=== PATIENT | female | born 1950 | race Caucasian/White ===

== ENCOUNTER 2020-09-11 13:48 | Outpatient (CLI) | payer MEDICARE, SELFPAY ==
--- NOTE | ~2020-09-11 | MM_ITS ---
EXAMINATION: MM screening magy BI w effie HISTORY: Screening mammogram TECHNIQUE: Craniocaudal and mediolateral oblique 3-D tomosynthesis images were obtained and synthetic 2-D images were generated. CAD analysis was submitted and interpreted. COMPARISON: 09/03/2018, 05/04/2017, 05/04/2015 bilateral digital screening mammogram examinations BREAST PARENCHYMAL COMPOSITION: The breasts are heterogeneously dense, which may obscure small masses . FINDINGS: There is no evidence of suspicious mass, calcification, or architectural distortion to sugg est malignancy in either breast. There has been no suspicious interval change. IMPRESSION: 1. No mammographic evidence of malignancy. 2. Recommend routine screening mammography in one year. BI-RADS Category 1: Negative Reviewed, dictated and finalized at location A.
== END 2020-09-11 13:49 | disposition home or self-care (01) ==
PROVIDERS: PCP Internal Medicine; Visit Provider Nurse Practitioner
DX: Z12.31 Encounter for screening mammogram for malignant neoplasm of breast (principal)
CPT/HCPCS: 77063; 77067

== ENCOUNTER 2020-11-03 12:38 | Emergency (ER) | payer MEDICARE, SELFPAY ==
--- NOTE | ~2020-11-03 | XR_ITS ---
EXAMINATION: XR ankle LT min 3V DATE: 11/03/2020 13:39 INDICATION: Left ankle pain, initial encounter TECHNIQUE: Anteroposterior, lateral, mortise, and additional oblique view of the ankle were obtained. COMPARISON: None. FINDINGS: There is a subtle oblique lucency of the distal fibula extending to the level of the tibial plafond. Ankle soft tissue swelling is noted. Bone alignment is normal. IMPRESSION: 1. Subtle oblique lucency of the distal fibula which could reflect nondisplaced fracture. Reviewed, dictated and finalized at location A.
--- NOTE | ~2020-11-03 | XR_ITS ---
EXAMINATION: XR knee LT min 4V DATE: 11/03/2020 13:38 INDICATION: Left knee pain TECHNIQUE: Four views of the left knee were obtained. COMPARISON: None. FINDINGS: Alignment is normal. No fracture or osteochondral lesion. There is mild tricompartmental os teoarthritis characterized by tiny marginal osteophytes. There is a small joint effusion. Soft tissue swelling surrounds the knee. IMPRESSION: 1. Knee soft tissue swelling and small joint effusion. No acute osseous abnormality identified. Reviewed, dictated and finalized at location A. IMPRESSION: 1. Knee soft tissue swelling and small joint effusion. No acute osseous abnorma lity identified.
[2020-11-03 12:45] VITALS: BP 112/88; PULSE 72; RESP 16; TEMP 36.9; O2SAT 100
--- NOTE | 2020-11-03 13:16 | ED.LOWEXIN ---
HPI - Extremity Injury (Lower) General Chief Complaint: Extremity Injury, Lower Stated Complaint: Left leg pain Time Seen by Provider: 11/03/20 13:16 Source: patient Mode of arrival: ambulatory Limitations: no limitations History of Present Illness HPI Narrative: Mariela Mccall is a 70 yo female with a PMH of high blood pressure only who [facility] injury while jumping off rocks with her grandchildren on Thursday her left leg was initially very swollen after she fell,, and she was walking more on her left toes and not putting her leg down and now the swelling is still there she is got ecchymosis around the calcaneal area she said she heard a popping but her knee is stiff as well as her ankle currently Related Data Home Medications Medication Instructions Recorded Confirmed cholecalciferol (vitamin D3) 50 50 mcg PO DAILY 08/15/19 11/03/20 mcg (2,000 unit) capsule lisinopril 10 mg PO DAILY 11/03/20 11/03/20 Allergies Allergy/AdvReac Type Severity Reaction Status Date / Time No Known Allergies Allergy Unknown Verified 11/03/20 12:45 Review of Systems Review of Systems: Narrative: CONSTITUTIONAL: Denies fever, chills, sweats. EYES: Denies visual changes, redness, discharge. ENT: Denies rhinorrhea, congestion, sore throat, otalgia. CARDIOVASCULAR: Denies chest pain, palpitations, edema. RESPIRATORY: Denies dyspnea, wheezing, cough GASTROINTESTINAL: Denies abdominal pain, nausea, vomiting, diarrhea. GENITOURINARY: Denies dysuria, hematuria, abnormal discharge SKIN: Denies rash or itching. NEUROLOGIC: Denies numbness, or focal weakness. PSYCHIATRIC: Denies anxiety or depression. Has left leg swelling that starts from the thigh all the way down to the foot after injury on Thursday (fall from rock) [facility] Past Medical History Medical History Cough Depression Essential (primary) hypertension Fatigue Fracture of arm (~2004) surgical repair Medicare annual wellness visit, subsequent Osteopenia Dexa 08/31/18 Osteopenia Pneumonia of right middle lobe due to infectious organism Post menopausal problems Screening for breast cancer Seasonal allergies Sinobronchitis Urinary incontinence in female Vitamin D deficiency Well woman exam with routine gynecological exam Surgical History Surgical History H/O cataract extraction (~06/2009) Family History Family History Sibling Family history of thyroid disease Hypertension Father Cerebrovascular accident Carcinoma of colon Grandparent Carcinoma of colon Family history of heart disease in male family member before age 55 Other Pancreatic cancer Social History Social History Smoking status: Never smoker Second hand tobacco smoke exposure: No Alcohol intake: never Substance use: never Additional occupation/education comments: former administrative operations coordinator for [employer] Gender identity (if verbalized by the patient): Female Comments At time of signature, I agree with nursing past medical, surgical, social and family history. There is no relevant family history pertinent to the presenting complaint. Exam Narrative: Exam Narrative: GENERAL: This is a well-nourished, well-developed patient, in mild distress. HEAD: normocephalic, atraumatic. EYES: Sclera clear/white. Vision is grossly intact. EARS: External ears normal, . Hearing grossly intact. NOSE: External nose normal without nasal discharge, nares without redness, no rhinorrhea. THROAT: Mucous membranes moist, NECK: Neck supple, CARDIOVASCULAR: Regular rate and rhythm without murmurs, gallops, or rubs. RESPIRATORY: Clear to auscultation. Breath sounds equal bilaterally. No wheezes, rales, or rhonchi. GASTROINTESTINAL: Abdomen soft, SKIN: warm,
== END 2020-11-03 14:13 | disposition home or self-care (01) ==
PROVIDERS: Emergency Provider Nurse Practitioner; PCP Internal Medicine
DX: S82.832A Other fracture of upper and lower end of left fibula, initial encounter for closed fracture (principal); X58.XXXA Exposure to other specified factors, initial encounter; I10 Essential (primary) hypertension; M81.0 Age-related osteoporosis without current pathological fracture; E55.9 Vitamin D deficiency, unspecified
CPT/HCPCS: 29515; 73564; 73610; 99214; G0463

== ENCOUNTER 2021-04-02 01:37 | Day surgery (SDC) | payer MEDICARE, SELFPAY ==
[2021-03-19 11:36] VITALS: BMI 21.2
[2021-04-02 08:50] VITALS: BP 139/58; PULSE 69; RESP 16; TEMP 36.1; O2SAT 100; BMI 20.2
[2021-04-02] MEDS: LACTATED RINGERS 1,000 ML 150 ML IV CONT (09:12)
--- NOTE | 2021-04-02 09:29 | WPDANESEPPF ---
Anes - Initial Pre Proc Eval Procedure: Operation Date: 04/02/21 10:00 Proposed Procedures p Screening Colonoscopy - Artem Guerra MD Date/Time: 04/02/21 09:29 Surgeon: Artem Guerra MD Pre Op Diagnosis: family hx of colon ca Patient Data Age: 70 Gender: F Height: 1.55 m Weight: 48.7 kg Last Vital Signs Temp 97.0 F L 04/02/21 08:50 Pulse 69 04/02/21 08:50 Resp 16 04/02/21 08:50 BP 139/58 L 04/02/21 08:50 Pulse Ox 100 04/02/21 08:50 Allergies Allergy/AdvReac Type Severity Reaction Status Date / Time No Known Allergies Allergy Unknown Verified 04/02/21 08:58 Home Medications Medication Instructions Recorded Confirmed Type lisinopril 5 mg tablet 10 mg PO DAILY #90 tablet 11/13/20 04/02/21 Rx calcium carbonate 500 mg PO DAILY 03/19/21 04/02/21 History cholecalciferol (vitamin D3) 25 mcg PO DAILY 03/19/21 04/02/21 History [Vitamin D3] citalopram [Celexa] 30 mg PO DAILY 03/19/21 04/02/21 History multivit with min-folic acid 1 tablet PO DAILY 03/19/21 04/02/21 History [Adult One Daily Multivitamin] Patient hx anesthesia problems: none Family hx anesthesia problems: none Results Review: All pre-operative results and documents have been reviewed as part of the pre-operative evaluation. [facility] Past Medical History Medical History Cough Depression Essential (primary) hypertension Fatigue Fracture of arm (~2004) surgical repair Medicare annual wellness visit, subsequent Osteopenia Dexa 08/31/18 Osteopenia Pneumonia of right middle lobe due to infectious organism Post menopausal problems Screening for breast cancer Seasonal allergies Sinobronchitis Urinary incontinence in female Vitamin D deficiency Well woman exam with routine gynecological exam Surgical History Surgical History H/O cataract extraction (~06/2009) Family History Family History Sibling Family history of thyroid disease Hypertension Father Cerebrovascular accident Carcinoma of colon Grandparent Carcinoma of colon Family history of heart disease in male family member before age 55 Other Pancreatic cancer Social History Social History (Updated 01/30/21 @ 10:50 by Bre Fontanez CNA) Smoking status: Never smoker Second hand tobacco smoke exposure: No Alcohol intake: never Substance use: never Living arrangements: with family 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[employer] Gender identity (if verbalized by the patient): Female Sexual Orientation (if Verbalized by the Patient): Straight or Heterosexual Spiritual care concerns: No Anes - Eval Final PreProcedure Day of Procedure 04/02/21 09:29 Patient weight: normal Heart: regular rate and rhythm Lungs: clear to auscultation Airway: Mallampati scale class II Neurological: alert and oriented Last oral intake: >/= 8 hours ASA classification: II Emergent: no Anesthetic plan: proceed Anesthesia type and monitoring: general GIVS and standard monitoring Results Review: All pre-operative results and documents have been reviewed as part of the pre-operative evaluation. Informed Consent: The patient's anesthetic plan and its attendant risks and benefits were discussed with the patient/family/POA. Questions were solicited and answers provided to the satisfaction of the patient/family/POA.
--- NOTE | 2021-04-02 09:31 | PM.HPGS ---
History of Present Illness History of Present Illness Consent: Risks, benefits, and alternatives have been discussed and questions answered. Patient agrees to proceed with procedure. Chief complaint: family hx of colon ca Narrative: Mariela Mccall is a 70 year old female with last colonoscopy 2013, father and paternal aunts had colon cancer Review of Systems Constitutional: Constitutional: Denies headache(s) and Denies weakness Eyes: Eyes: Denies blurry vision ENT: Reports Normal hearing present, Denies headache(s) and Denies neck pain Cardiovascular: Cardiovascular: Denies chest pain and Denies dyspnea Respiratory: Respiratory: Denies dyspnea Gastrointestinal: Gastrointestinal: Reports no additional gastrointestinal complaints Genitourinary: Genitourinary: Denies dysuria Musculoskeletal: Musculoskeletal: Denies neck pain Integumentary/Breasts: Skin/Breast: Denies dry skin Neurologic: Reports Normal hearing present, Denies headache(s) and Denies weakness Psychiatric: Psychiatric: Denies anxiety Endocrine: Endocrine: Denies change in body appearance Hematologic/Lymphatic: Hematologic/Lymphatic: Denies easy bleeding Allergic/Immunologic: Allergic/Immunologic: Denies urticaria PMFSH Past Medical History Medical History Cough Depression Essential (primary) hypertension Fatigue Fracture of arm (~2004) surgical repair Medicare annual wellness visit, subsequent Osteopenia Dexa 08/31/18 Osteopenia Pneumonia of right middle lobe due to infectious organism Post menopausal problems Screening for breast cancer Seasonal allergies Sinobronchitis Urinary incontinence in female Vitamin D deficiency Well woman exam with routine gynecological exam Surgical History Surgical History H/O cataract extraction (~06/2009) Family History Family History Sibling Family history of thyroid disease Hypertension Father Cerebrovascular accident Carcinoma of colon Grandparent Carcinoma of colon Family history of heart disease in male family member before age 55 Other Pancreatic cancer Social History Social History (Updated 01/30/21 @ 10:50 by Bre Fontanez CNA) Smoking status: Never smoker Second hand tobacco smoke exposure: No Alcohol intake: never Substance use: never Living arrangements: with family 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 Gender identity (if verbalized by the patient): Female Sexual Orientation (if Verbalized by the Patient): Straight or Heterosexual Spiritual care concerns: No Meds Home Medications and Allergies Home Medications Medication Instructions Recorded Confirmed Type lisinopril 5 mg tablet 10 mg PO DAILY #90 tablet 11/13/20 04/02/21 Rx calcium carbonate 500 mg PO DAILY 03/19/21 04/02/21 History cholecalciferol (vitamin D3) 25 mcg PO DAILY 03/19/21 04/02/21 History [Vitamin D3] citalopram [Celexa] 30 mg PO DAILY 03/19/21 04/02/21 History multivit with min-folic acid 1 tablet PO DAILY 03/19/21 04/02/21 History [Adult One Daily Multivitamin] Allergies Allergy/AdvReac Type Severity Reaction Status Date / Time No Known Allergies Allergy Unknown Verified 04/02/21 08:58 Vital Signs Vital Signs - 24 hr 04/02/21 08:50 Temperature 97.0 F L Pulse Rate 69 Respiratory Rate 16 Blood Pressure 139/58 L Pulse Oximetry 100 Exam Const: General: comfortable and no acute distress HENMT: General nose exam: Normal nares present Eyes: General: appearance normal, both eyes and all related structures Neck: Neck: no JVD Resp: Auscultation: clear to auscultation bilaterally Cardio: Rate: regular rate Rhythm: regular rhythm GI: Inspection: non-distended GI Palp: Yes Soft to palpation Skin: Ge
[2021-04-02 09:48] VITALS: BP 97/51; PULSE 68; RESP 26; O2SAT 99
[2021-04-02 09:58] VITALS: BP 111/58; PULSE 64; RESP 16; O2SAT 99
[2021-04-02 10:08] VITALS: BP 118/58; PULSE 61; RESP 24; O2SAT 99
== END 2021-04-02 10:19 | disposition home or self-care (01) ==
PROVIDERS: PCP Internal Medicine; Visit Provider Internal Medicine Gastroenterology
PROC: 0DJD8ZZ Inspection of Lower Intestinal Tract, Via Natural or Artificial Opening Endoscopic (ICD-10-PCS; CPT 45378; principal; 2021-04-02 10:00)
DX: Z12.11 Encounter for screening for malignant neoplasm of colon (principal); Z80.0 Family history of malignant neoplasm of digestive organs; K57.30 Diverticulosis of large intestine without perforation or abscess without bleeding; K64.8 Other hemorrhoids; K64.4 Residual hemorrhoidal skin tags; I10 Essential (primary) hypertension; F32.9 Major depressive disorder, single episode, unspecified; M19.90 Unspecified osteoarthritis, unspecified site; E55.9 Vitamin D deficiency, unspecified
CPT/HCPCS: G0105; J2405; J2704; J7120

== ENCOUNTER 2021-04-15 14:53 | Outpatient (CLI) | payer MEDICARE, SELFPAY ==
--- NOTE | ~2021-04-15 | DEXA_ITS ---
Bone Density Report Name: Mariela Mccall Age: 70 Sex: Female Ethnicity: White Date of : 1950 Indication: osteopenia; height loss; prior fracture; postmenopausal Referring Provider: ALLA THORNTON Study: Bone densitometry was performed. Exam Date: April 15, 2021 Accession number: [id number] Bone Density: Region BMD T-score Z-score Classification AP Spine (L1, L2, L3) 0.830 -1.7 0.4 Osteopenia Femoral Neck (Left) 0.570 -2.5 -0.7 Osteoporosis Total Hip (Left) 0.717 -1.8 -0.3 Osteopenia Total Hip Bilateral Avg 0.758 -1.5 0.1 Osteopenia Femoral Neck (Right) 0.605 -2.2 -0.4 Osteopenia Total Hip (Right) 0.798 -1.2 0.4 Osteopenia World Health Organization criteria for BMD impression classify patients as: Normal (T-score at or above -1.0), Osteopenia (T-score between -1.0 and -2.5), or Osteoporosis (T-score at or below -2.5). 10-year Fracture Risk: FRAX not reported because: Some T-score for Spine Total or Hip Total or Femoral Neck at or below -2.5 Previous Exams: Region Exam Age BMD T-score BMD Change BMD Change Date g/cm2 vs Baseline vs Previous AP Spine(L1, L2, L3) 04/15/2021 70 0.830 -1.7 0.002(0.2%)# -0.014(-1.7%) 08/24/2018 68 0.844 -1.6 0.016(1.9%)# 0.016(1.9%)# 10/09/2015 65 0.829 -1.7 Total Hip(Left) 04/15/2021 70 0.717 -1.8 -0.032(-4.3%)# -0.037(-4.9%)* 08/24/2018 68 0.754 -1.5 0.005(0.6%)# 0.005(0.6%)# 10/09/2015 65 0.749 -1.6 Total Hip(Right) 04/15/2021 70 0.798 -1.2 -0.060(-7.0%)# 0.010(1.3%) 08/24/2018 68 0.788 -1.3 -0.070(-8.2%)# -0.070(-8.2%)# 10/09/2015 65 0.858 -0.7 *Denotes significance at 95% confidence level, LSC for AP Spine = 0.022 g/cm2, LSC for Total Hip = 0.027 g/cm2 Clinical Information Provided by Patient: Has had a low trauma fracture Has used the following medications: Vitamin D, Calcium Patient maximum height was 61 Menopause Age: 50 No regular weight bearing exercise Onset of menses at age 12 Number of children 2 Impression: The patient has established osteoporosis, based on the Left Femoral Neck T-score and the existence of a prior fracture. The patient has risk factors, including: previous fracture. The BMD for the Total Hip(Left) decreased, changing by -4.9% since the last DXA exam. Discussion: HIGH RISK OF FRACTURE. BONE DENSITY IS UNDESIRABLY LOW AT ONE OR MORE SKELETAL SITES, CONSISTENT WITH POSTMENOPAUSAL OSTEOPOROSIS. This patient's lowest T-score,
== END 2021-04-15 14:54 | disposition home or self-care (01) ==
PROVIDERS: PCP Internal Medicine; Visit Provider Internal Medicine
DX: Z78.0 Asymptomatic menopausal state (principal); M81.0 Age-related osteoporosis without current pathological fracture; M85.851 Other specified disorders of bone density and structure, right thigh; M85.852 Other specified disorders of bone density and structure, left thigh
CPT/HCPCS: 77080

== ENCOUNTER 2022-02-19 08:44 | Outpatient (CLI) | payer MEDICARE, SELFPAY ==
--- NOTE | ~2022-02-19 | XR_ITS ---
EXAMINATION: XR UGIAC w barium swallow DATE: 02/19/2022 09:41 INDICATION: Early satiety. Extended full feeling after eating TECHNIQUE: The patient drank thick barium, gas-producing crystals, and thin barium. Fluoroscopic spot radiographs of the hypopharynx, esophagus, stomach and proximal small bowel were obtained. Fluorosco py exposure time was minutes. COMPARISON: None. FINDINGS: The pharynx is symmetric and without evidence of mass lesion or mucosal irregularity. Intermittent no nobstructing cricopharyngeal bar. A couple cm more caudally there is a small nonobstructing soft tiss ue web along the anterior margin of the proximal most cervical esophagus. The more distal esophagus i s normal without mass or stricture. Esophageal motility is normal. There is no hiatal hernia. There w as a single episode of gastroesophageal reflux of a small amount of contrast extending to the lower t horacic esophagus. Additional episodes of reflux were unable to be elicited with provocative maneuver s. The stomach and proximal small bowel are normal. IMPRESSION: 1. Transient esophageal bar and small anterior cervical esophageal web neither of which result in a s ignificant stricture. 2. Single episode of gastroesophageal reflux of a small amount of contrast into the distal esophagus. No hiatal hernia. Reviewed, dictated and finalized at location A. IMPRESSION: 1. Transient esophageal bar and small anterior cervical esophageal web neither of which result in a significant stricture. 2. Single episode of gastroesophageal reflux of a small amount of contrast into the distal esophagus. No hiatal hernia.
--- NOTE | ~2022-02-19 | XR_ITS ---
EXAMINATION: XR chest 2V 02/19/2022 09:15 INDICATION: Chest tightness PROCEDURE: 2 view chest COMPARISON: 04/15/2016 FINDINGS: The lungs are clear. The lungs are hyperinflated which is consistent with, but not diagnost ic of chronic obstructive pulmonary disease. The cardiomediastinal silhouette is within normal limits . There are no pleural effusions. There is no pneumothorax suspected. IMPRESSION: 1: NO ACUTE CARDIOPULMONARY DISEASE. Reviewed, dictated and finalized at location B.
== END 2022-02-19 08:45 | disposition home or self-care (01) ==
PROVIDERS: PCP Internal Medicine; Visit Provider Internal Medicine
DX: R68.81 Early satiety (principal); R07.89 Other chest pain; K21.9 Gastro-esophageal reflux disease without esophagitis
CPT/HCPCS: 71046; 74246

== ENCOUNTER 2022-09-01 15:13 | Emergency (ER) | payer MEDICARE, SELFPAY ==
--- NOTE | 2022-09-01 15:20 | ED.URI ---
HPI - URI/Sore Throat General Chief Complaint: Upper Respiratory Infection Stated Complaint: cough,dizzy,fatigue Time Seen by Provider: 09/01/22 15:48 Source: patient and RN notes reviewed Mode of arrival: ambulatory Limitations: no limitations History of Present Illness HPI Narrative: 72-year-old female presents with concern for dizziness, lightheadedness, dry cough, fatigue. Patient is very vague about explaining her symptoms. She reports sometimes she has a sore throat, some time she has runny nose, some time she has chest tightness, sometimes she has headache. She reports symptoms started 1 week ago after her visit with her regular doctor. She denies any medications for her symptoms. She reports the lightheadedness and dizziness is constant, it might worsen a little bit when she gets up from sitting. She denies that the dizziness illicits any nausea or vomiting. She reports tinnitus MD elicited complaint: cough and other (Dizziness, lightheadedness) Related Data Home Medications Medication Instructions Recorded Confirmed calcium carbonate 500 mg calcium 500 mg PO DAILY 03/19/21 08/26/22 (1,250 mg) chewable tablet cholecalciferol (vitamin D3) 25 25 mcg PO DAILY 03/19/21 08/26/22 mcg (1,000 unit) tablet (Vitamin D3) multivitamin with minerals-folic 1 tablet PO DAILY 03/19/21 08/26/22 acid 0.4 mg tablet inulin 2 gram chewable tablet 1 g PO DAILY 09/01/22 09/01/22 (Fiber Gummies) magnesium 500 mg tablet 15 mg PO DAILY 09/01/22 09/01/22 Allergies Allergy/AdvReac Type Severity Reaction Status Date / Time No Known Allergies Allergy Unknown Verified 09/01/22 15:22 Review of Systems Review of Systems: CONSTITUTIONAL: Reports malaise, fatigue. Denies chills, sweats, or fever. EYES: Denies visual changes, redness, or discharge. ENT: Reports intermittent rhinorrhea, congestion, sore throat. Denies sinus pain, otalgia CARDIOVASCULAR: Denies chest pain, palpitations, or edema. RESPIRATORY: Reports cough. Denies dyspnea. GASTROINTESTINAL: Denies abdominal pain, nausea, vomiting, diarrhea, bloody, or mucous stools. GENITOURINARY: Denies dysuria or hematuria. SKIN: Denies rash or itching. MUSCULOSKELETAL: Denies back pain, joint pain, or myalgia. NEUROLOGIC: Denies numbness, weakness. Reports dizziness, lightheadedness, headache. PSYCHIATRIC: Denies anxiety or depression. All systems reviewed & are unremarkable except as noted in HPI and below PMFSH Past Medical History Medical History Cough Depression Essential (primary) hypertension Fatigue Fracture of arm (~2004) surgical repair Medicare annual wellness visit, subsequent Osteopenia Dexa 08/31/18 Osteopenia Pneumonia of right middle lobe due to infectious organism Post menopausal problems Screening for breast cancer Seasonal allergies Sinobronchitis Urinary incontinence in female Vitamin D deficiency Well woman exam with routine gynecological exam Surgical History Surgical History H/O cataract extraction (~06/2009) Family History Family History Sibling Family history of thyroid disease Hypertension Father Cerebrovascular accident Carcinoma of colon Grandparent Carcinoma of colon Family history of heart disease in male family member before age 55 Other Pancreatic cancer Social History Social History (Updated 08/26/22 @ 12:52 by Allen Hollis MA) Smoking status: Never smoker Second hand tobacco smoke exposure: No Alcohol intake: never Substance use: never Lack of Transportation: No Lack of Food: Never True Current Housing: I Have Housing Concerned About Future Housing: No Difficulty Paying Gas/Electric Bills: No Difficulty Paying for Meds: No Education: Bachelor's Degree Difficulty w/ Childcare or Family Care: No Living arrangement
[2022-09-01 15:26] VITALS: BP 142/63; PULSE 62; RESP 16; TEMP 36.8; O2SAT 100
--- NOTE | 2022-09-01 15:58 | ECG_ITS ---
Measurements Intervals [place] Rate: 55 P: 73 GA: 138 QRS: 79 QRSD: 80 T: 76 QT: 413 QTc: 397 Interpretive Statements SINUS BRADYCARDIA OTHERWISE NORMAL ELECTROCARDIOGRAM NO PREVIOUS ECG AVAILABLE FOR COMPARISON Electronically Signed On 09-02-2022 7:00:37 CDT by Clem Wallace M.D.
== END 2022-09-01 16:25 | disposition home or self-care (01) ==
PROVIDERS: Emergency Provider Nurse Practitioner; PCP Internal Medicine
DX: R42 Dizziness and giddiness (principal); Z20.822 Contact with and (suspected) exposure to COVID-19; I10 Essential (primary) hypertension; M85.80 Other specified disorders of bone density and structure, unspecified site; E55.9 Vitamin D deficiency, unspecified
CPT/HCPCS: 87081; 87426; 87804; 87880; 93005; 99213; C9803; G0463

== ENCOUNTER → 2023-03-19 09:51 | Outpatient (CLI) | payer MEDICARE, SELFPAY ==
--- NOTE | ~2023-03-19 | CT_ITS ---
EXAMINATION: CT abdomen pelvis w con DATE: 03/19/2023 10:13 INDICATION: Right upper quadrant abdominal pain. Abnormal weight loss. TECHNIQUE: Computed tomography (CT) of the abdomen and pelvis was performed with 100 mL Omnipaque 350 intravenous contrast. Automated exposure control and iterative reconstruction technique were employe d. The dose-length product was 277.22 mGy-cm. COMPARISON: CT abdomen and pelvis 11/12/2015 FINDINGS: The visualized portions of the lung bases demonstrate minimal atelectasis. No pleural effus ion. The heart size is normal. No pericardial effusion. There is a 14 mm mass in the liver with inter rupted peripheral puddling of contrast, consistent with a hemangioma. The gallbladder, spleen, pancre as, and left adrenal gland are normal. There is a 12 mm mass in right adrenal gland measuring soft ti ssue attenuation without change from 11/12/2015, likely an adenoma. There are cysts in the kidneys martina suring up to 5.0 cm on the right. There are no dilated loops of bowel. The appendix is normal. There are no pathologically enlarged lymph nodes. There is no free intraperitoneal fluid. There is a 2.5 cm cyst in right ovary, likely benign. There are no pathologically enlarged lymph nodes. There is no fr ee intraperitoneal fluid. There is severe lumbar spondylosis. IMPRESSION: 1. No etiology for the patient's symptoms. Reviewed, dictated and finalized at location E.
== END ==
PROVIDERS: PCP Nurse Practitioner Family; Visit Provider Nurse Practitioner Family
DX: R63.4 Abnormal weight loss (principal); R10.11 Right upper quadrant pain
CPT/HCPCS: 74177; Q9967

== ENCOUNTER 2023-08-03 10:48 | Outpatient (CLI) | payer MEDICARE, SELFPAY ==
--- NOTE | ~2023-08-03 | DEXA_ITS ---
Bone Density Report Name: ROSALINE WILD Age: 73 Sex: Female Ethnicity: White Date of : 1950 Indication: postmenopausal; screening for osteoporosis; prior fracture; Referring Provider: ANNE STANLEY Study: Bone densitometry was performed. Exam Date: August 03, 2023 Accession number: [id number] Bone Density: Region BMD T-score Z-score Classification AP Spine (L1-L4) 0.887 -1.5 0.8 Osteopenia Femoral Neck (Left) 0.604 -2.2 -0.2 Osteopenia Total Hip (Left) 0.716 -1.9 -0.2 Osteopenia Femoral Neck (Right) 0.679 -1.5 0.4 Osteopenia Total Hip (Right) 0.784 -1.3 0.4 Osteopenia Total Hip Mean 0.750 -1.6 0.1 Osteopenia World Health Organization criteria for BMD impression classify patients as: Normal (T-score at or above -1.0), Osteopenia (T-score between -1.0 and -2.5), or Osteoporosis (T-score at or below -2.5). 10-year Fracture Risk(1): Major Osteoporotic Fracture 18% Hip Fracture 4.5% Reported Risk Factors: [place] (), Neck BMD=0.604, BMI=20.4, previous fracture (1) FRAX(R) Version 3.08. Fracture probability calculated for an untreated patient. Fracture probability may be lower if the patient has received treatment. Clinical Information Provided by Patient: Has had a low trauma fracture Has used the following medications: Fosamax (i.e. alendronate), Vitamin D, Calcium Patient maximum height was 61 Menopause Age: 44 No regular weight bearing exercise Drinks caffeinated beverages Onset of menses at age 11 Number of children 2 Impression: The patient has low bone mass, based on the Left Femoral Neck T-score. The patient has an estimated ten-year risk of hip fracture of 4.5% and an estimated ten-year risk of major fracture of 18%, based on the WHO FRAX algorithm. The patient has risk factors, including: previous fracture. Discussion: BONE DENSITY IS LOW AT ONE OR MORE SKELETAL SITES. THE PATIENT'S BMD AND CLINICAL RISK FACTORS CONTRIBUTE TO THIS PATIENT'S INCREASED RISK OF FRACTURE. This patient's lowest T-score is low at one or more skeletal sites. It meets the World Health Organization's (WHO) criteria for ?low bone mass? (T-score between -1.0 and -2.5). The patient's 10-year risk of hip fracture as calculated by FRAX exceeds the threshold where pharmacological therapy is recommended by the National Osteoporosis Foundation (NOF). However, all treatment decisions require clinical judgment and consideration of individual patient factors, including patient preferences, comorbidities, previous drug use, risk factors not captured in the FRAX model (e.g., frailty, falls, vitamin D deficiency, increased bone turnover, interval significant decline in bone density) and possible under or overestimation of fracture risk by FRAX. The patient should follow a healthful lifestyle (good nutriti
--- NOTE | ~2023-08-03 | MM_ITS ---
EXAMINATION: MM screening magy BI w effie HISTORY: Screening TECHNIQUE: Craniocaudal and mediolateral oblique 3-D tomosynthesis images were obtained and synthetic 2-D images were generated. CAD analysis was submitted and interpreted. COMPARISON: Comparison to multiple prior studies sequentially, with oldest reviewed study dated 04/17. BREAST PARENCHYMAL COMPOSITION: Not dense: There are scattered areas of fibroglandular density. FINDINGS: There is no evidence of suspicious mass, calcification, or architectural distortion to sugg est malignancy in either breast. There has been no suspicious interval change. IMPRESSION: 1. No mammographic evidence of malignancy. 2. Recommend routine screening mammography in one year. BI-RADS Category 1: Negative Reviewed, dictated and finalized at location A.
== END 2023-08-03 10:49 ==
PROVIDERS: PCP Nurse Practitioner Family; Visit Provider Nurse Practitioner Family
DX: Z12.31 Encounter for screening mammogram for malignant neoplasm of breast (principal); Z78.0 Asymptomatic menopausal state; Z13.820 Encounter for screening for osteoporosis
CPT/HCPCS: 77063; 77067; 77080

== ENCOUNTER 2023-08-18 10:51 | Outpatient (CLI) | payer MEDICARE, SELFPAY ==
--- NOTE | ~2023-08-18 | US_ITS ---
Pelvic ultrasound. Clinical History: Pelvic pain Technique: Realtime transabdominal scanning of the pelvis was performed. Color flow Doppler and Doppl er spectral analysis were performed. Findings: The uterus is anteverted. No abnormal endometrial thickening seen. Small amount of fluid pr esent in the endometrial cavity. No focal mass is identified. The right ovary measures 2.9 x 2.2 x 2.1 cm. No significant right ovarian or adnexal mass is seen. The left ovary measures 2.2 x 1.6 x 2.2 cm. No significant left ovarian or adnexal mass is seen. Vascular flow present in both ovaries on Doppler spectral analysis. There is no evidence of free fluid in the cul de sac. Impression: Unremarkable pelvic ultrasound. Reviewed, dictated and finalized at [place] [facility]. Impression: Unremarkable pelvic ultrasound.
== END 2023-08-18 10:52 ==
LOC: MICIMG 10:52
PROVIDERS: PCP Nurse Practitioner Family; Visit Provider Nurse Practitioner Family
DX: R10.31 Right lower quadrant pain (principal)
CPT/HCPCS: 76856

== ENCOUNTER 2024-02-05 11:17 | Outpatient (CLI) | payer MEDICARE, SELFPAY ==
--- NOTE | ~2024-02-05 | US_ITS ---
US pelvic complete w TV Ordering provider: JOON Liu History: . N83.201 - Unspecified ovarian cyst, right side . Comparison: None. Technique: Transabdominal and endovaginal ultrasound of the pelvis (Doppler ultrasound interrogation techniques used as needed for this exam.) FINDINGS: CERVIX: Nabothian cysts seen in the lower uterine segment versus in the cervix. Same area calcificati ons are seen. UTERUS: Measures 4.9x 2.2x 4.2 cm in length which is within normal limits and is anteverted. No myom etrial masses. Minimal fluid is seen in the uterine cavity ENDOMETRIUM: Normal in thickness measuring 0.14 mm. No endometrial masses, cysts or fluid. CUL DE SAC: No free fluid. RIGHT OVARY: Normal in size measuring 3.1x 2.1x 2.8 cm. Normal echotexture. Doppler vascular flow pre sent. Solid structure is seen in the right adnexal area with minimal vascularity suggestive of a mass cannot be from the ovary. Further evaluation advised. LEFT OVARY: Not visualized. ADNEXA: Normal. No mass. IMPRESSION: Right adnexal mass not from the ovary. Fluid in the uterine cavity with a cyst seen in the lower uterine segment associated with calcifications Otherwise, normal pelvic ultrasound. Reviewed, dictated and finalized at location A. IMPRESSION: Right adnexal mass not from the ovary. Fluid in the uterine cavity wi th a cyst seen in the lower uterine segment associated with calcifications Othe rwise, normal pelvic ultrasound.
== END 2024-02-05 11:18 | disposition home or self-care (01) ==
PROVIDERS: PCP Nurse Practitioner Family; Visit Provider Nurse Practitioner Family
DX: N83.201 Unspecified ovarian cyst, right side (principal); R14.0 Abdominal distension (gaseous)
CPT/HCPCS: 76830; 76856

== ENCOUNTER 2024-03-02 13:23 | Outpatient (CLI) | payer MEDICARE, SELFPAY ==
--- NOTE | ~2024-03-02 | CT_ITS ---
Non-contrast Head CT History: Headache Technique: Axial non-contrast imaging of the brain was performed. Dose reduction technique was used on this scan by utilizing automated exposure control and iterative reconstruction technique. The dose -length product (DLP) was 645.69 mGy-cm. Findings: There is no evidence of intracranial hemorrhage, mass lesion, or acute infarct. Brain par enchyma appears normal. The ventricles and subarachnoid spaces are normal in size. The calvarium ap pears normal. The visualized paranasal sinuses and mastoid air cells are clear. Impression: No significant abnormality seen. Reviewed, dictated and finalized at location . Impression: No significant abnormality seen.
== END 2024-03-02 13:24 | disposition home or self-care (01) ==
LOC: GOSHIMG 13:24
PROVIDERS: PCP Nurse Practitioner Family; Visit Provider Nurse Practitioner Family
DX: R51.9 Headache, unspecified (principal)
CPT/HCPCS: 70450

== ENCOUNTER 2024-04-22 10:18 | Outpatient (CLI) | payer MEDICARE, SELFPAY ==
--- NOTE | ~2024-04-22 | CT_ITS ---
CT of the Abdomen and Pelvis: Indication: Right adnexal mass Technique: 2.5 mm axial scans were obtained through the abdomen and pelvis following intravenous adm inistration of 100 cc of Omnipaque 350. Dose reduction technique was used on this scan by utilizing a utomated exposure control and iterative reconstruction technique. The dose-length product (DLP) was 2 16.81 mGy-cm. COMPARISON: 03/19/2023 Findings: Scans through the lung bases are unremarkable. The liver, spleen, pancreas, gallbladder, adrenals and kidneys are within normal limits. No evidence of aortic aneurysm. No lymphadenopathy. No bowel obstruction or bowel wall thickening. There is no evidence to suggest acute appendicitis. Images through the pelvis were performed. Urinary bladder unremarkable. There is a 3.2 x 2.5 cm ovoid adnexal mass, mildly increased in size and density from prior exam. No ascites. There is compression fracture or Schmorl's node at the superior plate of L2, new from prior exam, but age-indeterminate overall. Impression: 3.2 x 2.5 cm right adnexal mass, not consistent with simple cyst. Pre and postcontrast MR advised to further evaluate this lesion, given solid but otherwise indeterminate appearance on prior ultrasound. Age indeterminate compression fracture or Schmorl's node at L2, new since 03/19/2023. Reviewed, dictated and finalized at [facility]. NHOUSE ASSISTANT Impression: 3.2 x 2.5 cm right adnexal mass, not consistent with simple cyst. Pre and postc ontrast MR advised to further evaluate this lesion, given solid but otherwise i ndeterminate appearance on prior ultrasound. Age indeterminate compression fracture or Schmorl's node at L2, new since 2022.
[2024-04-22 10:41] LABS: Estimated Glomerular Filt Rate > 60
== END 2024-04-22 10:19 | disposition home or self-care (01) ==
LOC: MICIMG 10:19
PROVIDERS: PCP Nurse Practitioner Family; Visit Provider Obstetrics & Gynecology Gynecology
DX: N83.8 Other noninflammatory disorders of ovary, fallopian tube and broad ligament (principal)
CPT/HCPCS: 74177; Q9967

== ENCOUNTER 2024-05-20 10:59 | Outpatient (CLI) | payer MEDICARE, SELFPAY ==
--- NOTE | ~2024-05-20 | MR_ITS ---
EXAMINATION: MR pelvis wo/w con DATE: 05/20/2024 12:07 INDICATION: Pelvic and perineal pain. Right adnexal mass. TECHNIQUE: Magnetic resonance imaging (MRI) of the pelvis was performed without and with 9 mL MultiHa nce intravenous contrast. COMPARISON: CT abdomen and pelvis 04/22/2024, 03/19/23, 11/12/15, ultrasound 02/05/24 FINDINGS: There is a 4.9 cm cyst in right kidney. There are no dilated loops of bowel. The endometrial complex is normal and measures 3 mm in thickness. In the right adnexa, there is a 2.5 cm mass that demonstrat es low T2-weighted signal intensity and intermediate T1-weighted signal intensity without contrast en hancement. There are no pathologically enlarged lymph nodes. There is no free intraperitoneal fluid. There is mild osteoarthritis of the hips. IMPRESSION: 1. 2.5 cm mass in the right adnexa, stable from 11/12/15, likely a benign mass such as an endometrioma or peritoneal inclusion cyst. Reviewed, dictated and finalized at location A. LE FINISHER IMPRESSION: 1. 2.5 cm mass in the right adnexa, stable from 11/12/15, likely a benign mass s uch as an endometrioma or peritoneal inclusion cyst.
== END 2024-05-20 11:00 | disposition home or self-care (01) ==
LOC: MICIMG 11:00
PROVIDERS: PCP Nurse Practitioner Family; Visit Provider Obstetrics & Gynecology Gynecology
DX: R10.2 Pelvic and perineal pain (principal); R19.09 Other intra-abdominal and pelvic swelling, mass and lump
CPT/HCPCS: 72197; A9577

== ENCOUNTER 2024-07-28 15:29 | Emergency (ER) | payer MEDICARE, SELFPAY ==
--- NOTE | ~2024-07-28 | XR_ITS ---
XR wrist LT min 3V Ordering provider: Dulce Morrison APRN History: . FOOSH injury. Room 1 . Comparison: None. FINDINGS: BONES: No definite acute fracture or dislocation. No definite scaphoid fracture. Small opacity seen near to the fusiform bone is most likely soft tissue calcification. JOINT SPACES: Well maintained. SOFT TISSUES: Normal. IMPRESSION: No acute osseous abnormality left wrist. Reviewed, dictated and finalized at location A.
--- NOTE | ~2024-07-28 | XR_ITS ---
XR hand LT min 3V Ordering provider: Dulce Morrison APRN History: . FOOSH injury. Room 1 . Comparison: None. FINDINGS: BONES: No acute fracture or dislocation. Osteopenia of the bones. Lucency seen in the radial styloid is most likely summation shadow. JOINT SPACES: Well maintained. SOFT TISSUES: Unremarkable. IMPRESSION: No definite acute osseous abnormality left hand. Reviewed, dictated and finalized at location A.
[2024-07-28 15:43] VITALS: BP 119/82; PULSE 76; RESP 16; TEMP 37.1; O2SAT 100
--- NOTE | 2024-07-28 16:06 | ED_ITS ---
HPI - Extremity Injury (Upper) General Chief Complaint: Extremity Injury, Upper Stated Complaint: L WRIST INJURY Time Seen by Provider: 07/28/24 15:30 Source: patient Mode of arrival: ambulatory Limitations: no limitations History of Present Illness HPI narrative: patient 74-year-old female who presents with left hand/ wrist injury from fall with outstretched hand while she was walking around the park. Patient states she also landed on both knees. Did not hit her head. Related Data Home Medications ?Medication ?Instructions ?Recorded ?Confirmed ?Last Taken ?Type calcium carbonate 500 mg PO DAILY 03/19/21 06/16/24 Unknown History cholecalciferol (vitamin D3) 25 25 mcg PO DAILY 03/19/21 07/28/24 Unknown History mcg (1,000 unit) tablet (Vitamin D3) multivitamin with minerals-folic 1 tablet PO DAILY 03/19/21 06/16/24 Unknown History acid 0.4 mg tablet inulin 2 gram chewable tablet 1 g PO DAILY 09/01/22 06/16/24 Unknown History (Fiber Gummies) Allergies Allergy/AdvReac Type Severity Reaction Status Date / Time No Known Allergies Allergy Unknown Verified 07/28/24 15:40 Review of Systems Review of Systems: All systems reviewed & are unremarkable except as noted in HPI and below Constitutional: Constitutional: Denies body ache(s), Denies fever(s), Denies headache(s), Denies malaise and Denies weakness Eyes: Eyes: Reports no additional eye complaints and Denies loss of vision ENT: Reports system reviewed and no additional complaints, except as documented, Denies otalgia, Denies headache(s), Denies nasal discharge, Denies sinus pain and Denies sore throat Cardiovascular: Cardiovascular: Reports no additional cardiovascular complaints, Denies chest pain, Denies irregular heart rhythm and Denies dyspnea Respiratory: Respiratory: Reports no additional respiratory complaints and Denies dyspnea Gastrointestinal: Gastrointestinal: Reports no additional gastrointestinal complaints, Denies abdominal pain, Denies melena, Denies hematochezia, Denies diarrhea, Denies nausea and Denies vomiting Musculoskeletal: Musculoskeletal: Reports no additional musculoskeletal complaints, Denies back pain, Denies myalgias and Reports arthralgias Integumentary/Breasts: Skin/Breast: Reports system reviewed and no additional complaints, except as docu, Denies pruritus and Denies rash Neurologic: Reports system reviewed and no additional complaints, except as documented, Denies headache(s), Denies loss of vision and Denies weakness Psychiatric: Psychiatric: Reports no additional psychiatric complaints PMFSH Past Medical History Medical History Fatigue Medicare annual wellness visit, subsequent Osteopenia Pneumonia of right middle lobe due to infectious organism Post menopausal problems Screening for breast cancer Seasonal allergies Sinobronchitis Urinary incontinence in female Vitamin D deficiency Well woman exam with routine gynecological exam Essential (primary) hypertension Depression Fracture of arm (~2004) surgical repair Osteopenia Dexa 08/31/18 Cough Surgical History Surgical History H/O cataract extraction (~06/2009) Family History Family History Sibling Family history of thyroid disease Hypertension Father Cerebrovascular accident Carcinoma of colon Grandparent Carcinoma of colon Family history of heart disease in male family member before age 55 Other Pancreatic cancer Social History Social History Smoking status: Never smoker Second hand tobacco smoke exposure: No Alcohol intake: never Substance use: never Do You Feel Safe in your Home?: Yes Lack of Transportation: No Lack of Food: Never True Current Housing: I Have Housing Concerned About Future Housing: No Difficulty Paying Gas/Electric Bills: No Difficulty Paying for Meds: No Education: Bachelor's Degree Difficulty w/ Childcare or Family Care: No Living arrangements: with family Occupation/Education: retired Additional occupation/education comments: former hr administrative assistant for [employer] Gender identity (if verbalized by the patient): Female Sexual Orientation (if Verbalized by the Patient): Straight or Heterosexual Spiritual care concerns: No Agree to blood products: Yes Comments At time of signature, agree with nursing past medical, surgical, social and family history. There is no relevant family history pertinent to the presenting complaint. Exam Const: General: cooperative, healthy appearing, comfortable, no acute distress and well nourished Nutritional Appearance: well nourished Orie ntation/consciousness: patient oriented x3 Limitations: no limitations HENMT: Head: normal to inspection, normocephalic and atraumatic Ears: external ears normal Face/Nose/Sinus: Normal external nose present, normal facial exam and face symmetric Face and sinus: normal facial exam and face symmetric Mouth: Yes lip normal Eyes: General: appearance normal, both eyes and all related structures Alignment and Position: alignment normal and position normal Eyelids: eyelids normal Pupils: Equal, round and reactive pupils present EOM: EOMs intact bilaterally Neck: Neck: normal visual inspection and full ROM Chest: Chest palpation & inspection: normal inspection of the chest Resp: Effort & Inspection: normal respiratory effort and able to speak in complete sentences Auscultation: clear to auscultation bilaterally Cardio: Rate: regular rate Rhythm: regular rhythm Heart sounds: S1 normal heart sound present and S2 normal heart sound present GI: Inspection: normal to inspection Skin: General skin exam: normal color and no rashes or lesions noted Neuro: General: patient oriented x3 and moves all extremities Cranial nerves: Yes Equal, round and reactive pupils present Speech: normal speech Gait exam (Neuro): Normal gait present Extrem: General: normal to inspection, full ROM and no edema Left upper extremity: elbow/forearm normal to inspection and normal ROM; no tenderness, wrist normal to inspection, swelling of the dorsal wrist, normal ROM, ecchymosis wrist dorsal , normal vascular exam and radial pulse present; no tenderness and no deformity and hand normal to inspection, normal capillary refill, neuromotor exam normal Details: wrist extension normal, thumb opposition normal, thumb IP flexion normal, thumb ADduction normal and fingers 2-5 ABduction normal, neurosensory exam normal Details: radial nerve sensory function normal, ulnar nerve sensory function normal, median nerve sensory function normal and digital nerve sensory function normal, tendon exam normal Location: of all digits Details: extensor tendon, flexor digitorum profundus and flexor digitorum superficialis, normal ROM of fingers and no swelling; no tenderness Psych: Appearance: grossly normal and well kempt Mental Status: mental status grossly normal Speech and movement: Normal speech and movement present Affect: normal affect Attitude: cooperative Thought process: Normal thought process present Course Course Emergency Course: Patient is aware of diagnosis, understands and agrees to treatment plan. Anticipatory guidance given. Patient agrees to follow-up as directed and is aware of reasons to seek care at the emergency department. Portions of this record may have been created with voice recognition software Level of Care: Express Care Visit Vital Signs Vital signs: Vital Signs Temperature 37.1 C 07/28/24 15:43 Pulse Rate 76 07/28/24 15:43 Respiratory Rate 16 07/28/24 15:43 Blood Pressure 119/82 07/28/24 15:43 Pulse Oximetry 100 07/28/24 15:43 Temperature 37.1 C 07/28/24 15:43 Pulse Rate 76 07/28/24 15:43 Respiratory Rate 16 07/28/24 15:43 Blood Pressure 119/82 07/28/24 15:43 Pulse Oximetry 100 07/28/24 15:43 Reviewed MDM - Extremity Injury (Upper) MDM Narrative Medical decision making narrative: Wilman wrap applied Pt well hydrated appearing, in no respiratory distress, hemodynamically stable. Recommend supportive care. The patient is stable at time of discharge the clinical impression was discussed and the patient was given the opportunity to ask questions, which were addressed as completely as possible given the information available at present. Anticipatory guidance and return to care precautions were discussed and the importance of primary care follow-up was stressed and encouraged. The patient voiced understanding of the plan, indications to return, and the need for follow-up. Exam findings show no acute concerns or changes Patient is appropriate for outpatient treatment and follow-up. Differential Diagnosis Differential diagnosis: Likely sprain and strain of wrist, fracture of wrist and fracture of hand Medical Records Attestation: I reviewed the patient's medical records. Imaging Data Radiologist's impression: XR hand LT min 3V Ordering provider: Dulce Morrison APRN History: . FOOSH injury. Room 1 . Comparison: None. FINDINGS: BONES: No acute fracture or dislocation. Osteopenia of the bones. Lucency seen in the radial styloid is most likely summation shadow. JOINT SPACES: Well maintained. SOFT TISSUES: Unremarkable. IMPRESSION: No definite acute osseous abnormality left hand. XR wrist LT min 3V Ordering provider: Dulce Morrison APRN History: . FOOSH injury. Room 1 . Comparison: None. FINDINGS: BONES: No definite acute fracture or dislocation. No definite scaphoid fracture. Small opacity seen near to the fusiform bone is most likely soft tissue calcification. JOINT SPACES: Well maintained. SOFT TISSUES: Normal. IMPRESSION: No acute osseous abnormality left wrist. Discharge Plan Discharge Clinical Impression: Sprain and strain of wrist Patient Disposition: Home, Self-Care Condition: Stable Instructions: Wrist Sprain (ED) Additional Instructions: Xray showed no fracture. Minimize activities that aggravate the condition The RICE protocol. Follow the RICE protocol as soon as possible after your injury:. Ice should be immediately applied to keep the swelling down. It can be used for 20 to 30 minutes, three or four times daily. Do not apply ice directly to your skin. Compression dressings, bandages or wilman-wraps will immobilize and support your injured wrist. Elevate your Wrist above the level of your heart as often as possible during the first 48 hours. Medication: Nonsteroidal anti-inflammatory drugs (NSAIDs) such as ibuprofen and naproxen can help control pain and swelling. Because they improve function by both reducing swelling and controlling pain, they are a better option for mild sprains than narcotic pain medicines. Please schedule a follow-up visit with your personal physician for further evaluation and treatment within 1week OR If your symptoms persist, change or worsen significantly before you can contact your personal physician then please, without delay, go to the emergency department for further evaluation. Patient Language: Cuban Prescriptions: No Action Fiber Gummies 2 gram Tablet,Chewable 1 g PO DAILY calcium carbonate 500 mg calcium (1,250 mg) Tablet,Chewable 500 mg PO DAILY cholecalciferol (vitamin D3) [Vitamin D3] 25 mcg (1,000 unit) Tablet 25 mcg PO DAILY multivit with min-folic acid [Adult One Daily Multivitamin] 0.4 mg Tablet 1 tablet PO DAILY citalopram 40 mg tablet See Rx Instructions .ROUTE .COMPLEX Qty: 90 1RF Dose Instruction: Take 1 tablet by mouth once daily Rx Instructions: Take 1 tablet by mouth once daily lisinopril 10 mg tablet See Rx Instructions .ROUTE .COMPLEX Qty: 90 0RF Dose Instruction: Take 1 tablet by mouth once daily Rx Instructions: Take 1 tablet by mouth once daily Follow-up/Referrals: Mary Kate Santigao APRN [Primary Care Provider] - 3 Days Time of Disposition: 16:37
== END 2024-07-28 16:42 | disposition home or self-care (01) ==
PROVIDERS: Emergency Provider Nurse Practitioner Family; PCP Nurse Practitioner Family
DX: S63.502A Unspecified sprain of left wrist, initial encounter (principal); S66.912A Strain of unspecified muscle, fascia and tendon at wrist and hand level, left hand, initial encounter; W19.XXXA Unspecified fall, initial encounter; I10 Essential (primary) hypertension; E55.9 Vitamin D deficiency, unspecified; M85.80 Other specified disorders of bone density and structure, unspecified site
CPT/HCPCS: 73110; 73130; 99213; G0463

== ENCOUNTER 2024-11-29 13:45 | Outpatient (CLI) | payer MEDICARE, SELFPAY ==
--- NOTE | ~2024-11-29 | MM_ITS ---
EXAMINATION: MM screening magy BI w effie HISTORY: Screening TECHNIQUE: Craniocaudal and mediolateral oblique 3-D tomosynthesis images were obtained and synthetic 2-D images were generated. CAD analysis was submitted and interpreted. COMPARISON: Comparison to multiple prior studies sequentially, with oldest reviewed study dated 04/17. BREAST PARENCHYMAL COMPOSITION: Dense: The breasts are heterogeneously dense, which may obscure small masses FINDINGS: There is no evidence of suspicious mass, calcification, or architectural distortion to sugg est malignancy in either breast. There has been no suspicious interval change. IMPRESSION: 1. No mammographic evidence of malignancy. 2. Recommend routine screening mammography in one year. BI-RADS Category 1: Negative Reviewed, dictated and finalized at location B.
== END 2024-11-29 13:46 | disposition home or self-care (01) ==
LOC: MICIMG 13:45
PROVIDERS: PCP Nurse Practitioner Family; Visit Provider Nurse Practitioner Family
DX: Z12.31 Encounter for screening mammogram for malignant neoplasm of breast (principal)
CPT/HCPCS: 77063; 77067

== ENCOUNTER 2025-05-02 15:22 | Outpatient (CLI) | payer MEDICARE, SELFPAY ==
--- NOTE | ~2025-05-02 | CT_ITS ---
EXAMINATION: CT lumbar spine wo con COMPARISON: None HISTORY: Wedge compression fracture of unspecified lumbar TECHNIQUE: Axial images were obtained through the spine without IV contrast. Coronal, sagittal reconstruction images were obtained from the axial views. CT scan performed using dose optimization techniques including the following automated exposure control; adjustment of mA and/or kV; use of iterative reconstruction technique. Automatic exposure control was used to reduce radiation dose. Permanent radiation dose record is archived to PACS. FINDINGS: There is a mild dextroconvex scoliosis. Moderate loss of vertebral height throughout. Grade 1 anterolisthesis of L4 on L5. There is a remote superior endplate fracture of L2 with loss of height 50%, no retropulsion. Moderate loss of disc height at L1-2, L2-3 L3-4 and L4-5 moderate canal and foraminal stenosis. Soft tissues unremarkable. Impression: No acute abnormality. Reviewed, dictated and finalized at location P. ING KILN OPERATOR Impression: No acute abnormality.
== END 2025-05-02 15:23 | disposition home or self-care (01) ==
LOC: MICIMG 15:23
PROVIDERS: PCP Nurse Practitioner Family; Visit Provider Nurse Practitioner Family
DX: S32.000A Wedge compression fracture of unspecified lumbar vertebra, initial encounter for closed fracture (principal); R93.5 Abnormal findings on diagnostic imaging of other abdominal regions, including retroperitoneum; X58.XXXA Exposure to other specified factors, initial encounter
CPT/HCPCS: 72131